=== PATIENT | female | born 1940 | race Caucasian/White ===

== ENCOUNTER 2016-11-04 22:40 | Emergency (ER) | payer MEDICARE, SELFPAY ==
[2016-11-04 22:51] VITALS: TEMP 98; BMI 42.0
--- NOTE | 2016-11-04 23:29 | EDPRACDOC ---
- General Information Chief Complaint: Earache Stated Complaint: POST SURGERY COMPLICATIONS (EAR) Time Seen by Provider: 11/04/16 23:05 Information Source: Patient Mode Of Arrival: Car Home Medications: Home Medications Carvedilol [Coreg] 25 mg PO BID 07/24/13 Cholecalciferol [Vitamin D3 (cholecalciferol)] 2,000 units PO DAILY 07/24/13 Furosemide [Lasix] 40 mg PO BID 07/24/13 [place]-3 Fatty Acids/Fish Oil [Fish Oil 1,000 mg Softgel] 1,000 mg PO QHS Potassium Chloride [Klor-Con M20] 20 meq PO BID 07/24/13 Rosuvastatin [Crestor] 10 mg PO HS 07/24/13 Meclizine HCl 25 mg PO TID PRN 12/16/15 Valsartan [Diovan] 160 mg PO DAILY 01/05/16 Lorazepam 1 mg PO TID #15 tablet 01/08/16 Pregabalin [Lyrica] 75 mg PO BID #10 capsule 01/08/16 Aspirin (OrangeEnteric Coated) [Ecotrin] 325 mg PO BID #60 tab 07/15/16 Meloxicam [Mobic] 15 mg PO DAILY 07/15/16 Mupirocin 22 gm GAVIN BID 07/15/16 Oxycodone Immediate Release [Oxycodone Immediate Release (OxyIR)] 5 mg PO Q4H PRN #40 tab 07/15/16 Allergies/Adverse Reactions: Allergies Allergy/AdvReac Type Severity Reaction Status Date / Time codeine Allergy Unknown See Verified 11/04/16 22:51 Comments [email or web address] [From Lunesta] Allergy nightmare Verified 11/04/16 22:51 - History of Present Illness Onset: 30 MIN Wound Location: RIGHT EAR Wound Type: Linear Wound Discharge: Bloody Previously Treated In: Surgery Current Wound Treatment: Sutured Last Tetanus: Yes Associated Signs and Symptoms: Other (BLEEDING) Other History: PT PRESENTS DUE TO BLEEDING FROM RIGHT EAR WOUND WHERE SHE HAD LESION REMOVED EARLIER TODAY BY DR OWENS. PT STATES SHE WAS LAYING IN HER RECLINER AND FELL ASLEEP , WHEN SHE WOKE UP SHE NOTED BLOOD ON THE RECLINER AND HER EAR. NO ACUTE DISTRESS NOTED. ED Past Medical History - History Reviewed Yes Nurses notes reviewed and agree except as marked - Patient Medical History Cardiac History: Reports: Hypertension, Congestive Heart Failure (GRADE 1 DIASTOLIC DYSFUNCTION, ), Cardiac Catheterization (03/2005 NORMAL CORONARY ARTERIES), Cardiomyopathy (non ischemic-dilated) Respiratory History: Reports: Pneumonia (2012) GI/ History: Reports: Renal Disease (CKD), Diverticulosis (SIGMOID) Musculoskeletal History: Reports: Arthritis Psychological History: Reports: Anxiety. Denies: Depression, Substance Use Disorder Systemic History: Reports: Cancer, Anemia Surgical History: Reports: Cholecystectomy (), Hysterectomy, Cardiac Catheterization (03/2005 NORMAL CORONARY ARTERIES) Date of Last Radiation Treatment: 1997 Date of Last Chemotherapy Date: 1997 - Family Medical History Reports: Hypertension (PARENTS), Diabetes (DAUGHTER), Stroke (BROTHER), Cardiac Disorders (FATHER CHF, BROTHER CAD). Denies: Cancer - Social Medical History Smoking Status: Never smoker Social History: Denies: Substance Use Disorder EDM Review of Systems - Review of Systems ROS Negative Except as Marked: Yes All systems reviewed and were negative except as marked - Physical Exam Constitutional: Alert Oriented to: Time, Person, Place Last recorded Vital Signs: Last Vital Signs Temp 98 F 11/04/16 22:48 Pulse 65 11/04/16 22:48 Resp 20 11/04/16 22:48 BP 154/75 11/04/16 22:48 Pulse Ox 97 11/04/16 22:48 Oxygen Pulse Oxygen Saturation 97 O2 Device Room Air Oxygen Flow Rate Fraction of Inspired Oxygen ( FIO2) - HEENT Head: Normal ( normocephalic) Eye Exam: Normal (PERRL, EOMI, Sclera white) Oropharynx: Normal (Pharynx:Moist without exudate,Gums-no swelling) Tympanic Membrane: Normal ENT EAC: Blood (SUTURES NOTED TO HELIX, SMALL ABOUT OF DRIED BLOOD NOTED, CLEANED AND OINTMENT REAPPLIED) Nose: No Symptoms Reported (septum midline) Neck: Normal (FROM, trachea at midline) - Respiratory/Cardiovascular Respiratory: Normal - CTA (BBS clear to auscultation without adventitious sounds ) Cardiovascular: Normal (RRR without murmur, gallop or rub) - GI Auscultation: Normal (NABS) Palpation: Normal (Soft,No rebound or guarding, non distended) Tenderness: Non tender Azar's Sign: Negative Rectal Exam: Deferred - Musculoskeletal Back: Normal (Non-Tender) Extremities: Normal (Normal tone, Pulses 2+ No cyanosis or edema, FROM) - Integumentary Skin: Normal, Warm, Dry Lymphatics: Normal (no adenopathy) - Neurologic Memory Impaired: Normal Motor Function: Normal (Normal tone, Pulses 2+ No cyanosis or edema, FROM) Cranial Nerve: Normal (CN II-X11 intact sensation, strength 5/5) Cerebellar: Normal Mood Description: Normal Perception: Normal ED Wound Check Exam - Wound Detail Wound Location: RIGHT OUTER EAR Healing: Well Discharge: Bloody Erythema: None - Differential Diagnosis Healing wound Decision Time to Discharge: 23:32 - Departure Disposition: Home Condition: Stable Final Diagnosis: Bleeding from wound Instructions: Sutured Wound Care, Care For Your Stitches (ED) Education/Counseling Given To: Patient Education/Counseling Given Regarding: Diagnosis, Treatment, Prognosis, Follow Up Referrals: Ventura Plata MD [Primary Care Provider] - One Week Prescriptions: No Action [place]-3 Fatty Acids/Fish Oil [Fish Oil 1,000 mg Softgel] 1,000 mg PO QHS Cholecalciferol [Vitamin D3 (cholecalciferol)] 2,000 units PO DAILY Rosuvastatin [Crestor] 10 mg PO HS Potassium Chloride [Klor-Con M20] 20 meq PO BID Furosemide [Lasix] 40 mg PO BID Carvedilol [Coreg] 25 mg PO BID Meclizine HCl 25 mg PO TID PRN PRN Reason: Dizziness Valsartan [Diovan] 160 mg PO DAILY Lorazepam 1 mg PO TID #15 tablet Pregabalin [Lyrica] 75 mg PO BID #10 capsule Oxycodone Immediate Release [Oxycodone Immediate Release (OxyIR)] 5 mg PO Q4H PRN #40 tab PRN Reason: Pain Aspirin (OrangeEnteric Coated) [Ecotrin] 325 mg PO BID #60 tab Meloxicam [Mobic] 15 mg PO DAILY Mupirocin 22 gm GAVIN BID Additional Instructions: KEEP AREA CLEAN AND DRY. REMOVE PRESSURE DRESSING TOMORROW. FOLLOW UP WITH DR OWENS SCHEDULED. RETURN TO THE ED FOR WORSENING SYMPTOMS OR CONCERNS
[2016-11-04 23:45] VITALS: BP 148/76; PULSE 78
== END 2016-11-04 23:45 | disposition home or self-care (01) ==
LOC: ED 22:40
DX: H95.42 Postprocedural hemorrhage of ear and mastoid process following other procedure (principal); Y83.9 Surgical procedure, unspecified as the cause of abnormal reaction of the patient, or of later complication, without mention of misadventure at the time of the procedure
CPT/HCPCS: 99283